=== PATIENT | female | born 1940 | race American Indian/Alaskan Native ===

== ENCOUNTER 2016-12-29 08:14 | Day surgery (SDC) | payer MEDICARE ==
[2016-12-29] MEDS ORDERED: VERSED IV ONE (08:51)
[2016-12-29] MEDS ORDERED: SUBLIMAZE IV ONE (08:51)
[2016-12-29 09:26] LABS: INR 1.03 (0.87-1.13)
[2016-12-29 09:27] LABS: Partial Thromboplastin Time 27.3 Sec. (24.2-36.6)
[2016-12-29 09:43] LABS: Basophils % (Auto) 0.5 % (0.0-1.8); Eosinophils % (Auto) 0.1 % (0.0-4.3); Hematocrit 30.6 % (30.3-42.9); Hemoglobin 9.5 gm/dl (10.1-14.3); Mean Corpuscular HGB Conc 31 % (30-34); Mean Corpuscular Volume 81 fl (79-97); Platelet Count 365 K/mm3 (140-440); Red Blood Count 3.76 M/mm3 (3.65-5.03); Red Cell Distribution Width 16.3 % (13.2-15.2)
[2016-12-29 09:44] LABS: Mean Corpuscular Hemoglobin 25 pg (28-32)
[2016-12-29] MEDS ORDERED: NACL 0.9% 500 ML 0 ML ONE (09:55)
--- NOTE | 2016-12-29 11:19 | Cat Scan Report ---
CT BIOPSY OF ABDOMINAL/RETRO-MASS History: Abdominal mass. Description of procedure: The previous CT abdomen pelvis with contrast from an outlying facility was reviewed. The exam demonstrated multiple liver, splenic and mesenteric masses. Informed consent was obtained. Sterile technique was utilized. Conscious sedation was accomplished with Versed and fentanyl. Independent cardiorespiratory monitoring by RN. Intra-observer time was 20 minutes. The patient was sedated for [address] guidance, a 17-gauge introducer needle was advanced to the leading edge of a 3.4 x 2.9 cm left mesenteric mass. 4 separate 18-gauge core biopsies were obtained for pathology. The samples were deemed adequate by the pathologist who was present in the CT room. No complications. Impression: Successful CT-guided biopsy of a left abdominal/mesenteric mass as described.
[2016-12-29 12:13] VITALS: BP 101/50
== END 2016-12-29 12:35 | disposition home or self-care (01) ==
LOC: OPU 08:14
PROVIDERS: ATTEND Internal Medicine Hematology & Oncology
DX: C48.0 Malignant neoplasm of retroperitoneum (principal)
CPT/HCPCS: 36415; 49180; 77012; 85025; 85610; 85730; 88173; 88305; 88333; 88341; 88342; J2250; J3010; J7040